=== PATIENT | female | born 1970 | race Two or more races ===

== ENCOUNTER 2019-09-23 21:26 | Emergency (ER) | payer OTHER, MEDICAID ==
--- NOTE | 2019-09-23 22:04 | EDM.PDOC ---
ED HPI GENERAL MEDICAL PROBLEM - General Stated Complaint: HEART Time Seen by Provider: 09/23/19 21:47 Source of Information: Reports: Patient History Limitations: Reports: No Limitations - History of Present Illness INITIAL COMMENTS - FREE TEXT/NARRATIVE: 49-year-old female with history of recurrent dull and aching and throbbing left- sided chest pain that radiates to her left arm and seems to come and go for the past 5-6 months. She initially was seen at [facility] in [place] at that time and was told that her heart enzymes were somewhat elevated change [place] checks and she was sent home and she has had no follow-up since then. For about the next 2 months her pain seemed to not come back and was pretty much gone and then over the past 2 months she has had recurring episodes of this pain may be coming go both with activity and at rest and lasts for anywhere from 30 minutes to 2-4 hours and then seemed to resolve on their own. When she has these pains they seem to be worse when she is up and moving about and then seemed to get better at rest. She has shortness of breath associated with these pains and nausea at times. She has had no vomiting. 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 The pain is currently a 4/10 now area she feels very anxious associated with these symptoms. She has had no vomiting. The pain in her chest is not affected by palpation or breathing. She does feel some numbness and tingling in the left hand. She also feels very anxious right now. No cough. No fever. No nasal congestion. No sore throat. No trouble swallowing. There are no other associated signs or symptoms. There are no other modifying factors. Onset: Today (APM) Duration: Constant Location: Reports: Chest, Upper Extremity, Left Quality: Reports: Ache, Dull, Other (Tingling in left arm and hand.) Severity: Moderate Improves with: Reports: Rest Worsens with: Reports: Other (Activity), Movement Context: Reports: Other Associated Symptoms: Reports: Chest Pain, Headaches, Nausea/Vomiting, Shortness of Breath Treatments [employer] HELPER: Reports: Other (see below) (Nothing) chest Pain Score (Numeric/FACES): 4 - Related Data Allergies Allergy/AdvReac Type Severity Reaction Status Date / Time amlodipine Allergy Edema Verified 09/23/19 21:50 cyproheptadine Allergy Edema Verified 09/23/19 21:50 lisinopril Allergy Cough Verified 09/23/19 21:50 trazodone Allergy Diarrhea Verified 09/23/19 21:50 Home Meds: Home Meds Aspirin 81 mg PO DAILY 09/23/19 [History] ClonazePAM [KlonoPIN] 2 mg PO TID 09/23/19 [History] Cyclobenzaprine [Flexeril] 10 mg PO TID 09/23/19 [History] DULoxetine [Cymbalta] 30 mg PO DAILY 09/23/19 [History] Empagliflozin [Jardiance] 10 mg PO DAILY 09/23/19 [History] Ferrous Sulfate 325 mg PO DAILY 09/23/19 [History] Fish Oil/[place]-3 Fatty Acids [Fish Oil 1,000 MG] 1 each PO DAILY 09/23/19 [History] Ibuprofen 800 mg PO TID PRN 09/23/19 [History] Losartan [Cozaar] 100 mg PO DAILY 09/23/19 [History] Mirtazapine [Remeron] 30 mg PO BEDTIME 09/23/19 [History] Omeprazole 20 mg PO DAILY 09/23/19 [History] Ondansetron [Zofran ODT] 4 mg PO Q6H PRN 09/23/19 [History] Pravastatin [Pravachol] 20 mg PO DAILY 09/23/19 [History] glipiZIDE [Glucotrol XL] 5 mg PO QPM 09/23/19 [History] hydroCHLOROthiazide [Hydrochlorothiazide] 25 mg PO DAILY 09/23/19 [History] metFORMIN [Glucophage] 1,000 mg PO BIDMEALS 09/23/19 [History] Past Medical History Cardiovascular History: Reports: High Cholesterol, Hypertension Psychiatric History: Reports: Anxiety, Depression, OCD, Other (See Below) (agoraphobia) Endocrine/Metabolic History: Reports: Diabetes, Type II, Obesity/BMI 30+ - Past Surgical History GI Surgical History: Reports: Cholecystectomy Female Surgical History: Reports: Section Social & Family History - Tobacco Use Smoking Status *Q: Former Smoker (Quit smoking about 3 years ago.) - Alcohol Use Alcohol Use History: No - Living Situation & Occupation Occupation: Disabled Social History Comment: From [place]. 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 ED ROS GENERAL - Review of Systems Review Of Systems: See Below Constitutional: Reports: No Symptoms HEENT: Reports: No Symptoms Respiratory: Reports: Shortness of Breath Cardiovascular: Reports: Chest Pain, Lightheadedness Endocrine: Reports: No Symptoms GI/Abdominal: Reports: Nausea. Denies: Vomiting : Reports: No Symptoms Musculoskeletal: Reports: Arm Pain (Arm pain) Neurological: Reports: Dizziness, Headache Psychiatric: Reports: Anxiety Hematologic/Lymphatic: Reports: No Symptoms Immunologic: Reports: No Symptoms ED EXAM, GENERAL - Physical Exam Exam: See Below Exam Limited By: No Limitations General Appearance: Alert, Moderate Distress, Obese Eye Exam: Bilateral Eye: EOMI, Normal Inspection, PERRL Ears: Normal External Exam, Hearing Grossly Normal Ear Exam: Bilateral Ear: Auricle Normal Nose: Normal Inspection, Normal Mucosa, No Blood Throat/Mouth: Normal Inspection, Normal Oropharynx, Normal Voice, No Airway Compromise Head: Atraumatic, Normocephalic Neck: Normal Inspection, Supple, Non-Tender, Full Range of Motion Respiratory/Chest: No Respiratory Distress, Lungs Clear, Normal Breath Sounds, No Accessory Muscle Use, Chest Non-Tender Cardiovascular: Normal Peripheral Pulses, Regular Rate, Rhythm, No JVD, No Murmur Peripheral Pulses: 2+: Radial (L), Radial (R), Dorsalis Pedis (L), Dorsalis Pedis (R) GI/Abdominal: Normal Bowel Sounds, Soft, Non-Tender, No Mass Back Exam: Normal Inspection, Full Range of Motion Extremities: Normal Inspection, Non-Tender, No Pedal Edema, Normal Capillary Refill Neurological: Alert, Oriented, CN II-XII Intact, Normal Cognition, No Motor/Sensory Deficits Psychiatric: Anxious, Tearful Skin Exam: Warm, Dry, Intact, Normal Color, No Rash EKG INTERPRETATION EKG Date: 09/23/19 Time: 21:43 Rhythm: Other (Sinus tachycardia) Rate (Beats/Min): 110 [place]: Normal P-Wave: Present QRS: Normal ST-T: Other (Flattened T waves in inferior leads.) QT: Prolonged (QTc) Comparison: NA - No Prior EKG Course - Vital Signs Last Recorded V/S: Last Vital Signs Temp 36.4 C 09/23/19 21:26 Pulse 122 H 09/23/19 22:16 Resp 22 H 09/23/19 21:26 BP 103/52 L 09/23/19 22:16 Pulse Ox 95 09/23/19 21:26 - Orders/Labs/Meds Orders: Active Orders 24 hr Category Date Time Status Blood Glucose Check, Bedside [RC] ONETIME Care 09/23/19 22:07 Active EKG Documentation Completion [RC] ASDIRECTED Care 09/23/19 22:08 Active Chest 1V Frontal [CR] Stat Exams 09/23/19 22:07 Taken Nitroglycerin [Nitrostat] Med 09/23/19 22:09 Active 0.4 mg SL Q5M PRN Sodium Chloride 0.9% [Normal Saline] 1,000 ml Med 09/23/19 22:15 Active IV ASDIRECTED Sodium Chloride 0.9% [Saline Flush] Med 09/23/19 22:07 Active 10 ml FLUSH ASDIRECTED PRN Peripheral IV Insertion Adult [OM.PC] Routine Oth 09/23/19 22:07 Ordered EKG 12 Lead [EK] Routine Ther 09/23/19 22:07 Ordered Medication Orders Sodium Chloride (Normal Saline) 1,000 mls @ 100 mls/hr IV ASDIRECTED TON Last Admin: 09/23/19 22:10 Dose: 100 mls/hr Documented by: TYRONE Nitroglycerin (Nitrostat) 0.4 mg SL Q5M PRN PRN Reason: Chest Pain Last Admin: 09/23/19 22:11 Dose: 0.4 mg Documented by: TYRONE Sodium Chloride (Saline Flush) 10 ml FLUSH ASDIRECTED PRN PRN Reason: Keep Vein Open Last Admin: 09/23/19 22:49 Dose: 10 ml Documented by: TYRONE Labs: Laboratory Tests 09/23/19 09/23/19 09/23/19 Range/Units 21:34 22:20 22:20 WBC 11.6 (4.5-12.0) X10-3/uL RBC 5.43 H (3.23-5.20) x10(6)uL Hgb 14.6 (11.5-15.5) g/dL Hct 45.9 (30.0-51.3) % MCV 84.6 (80-96) fL MCH 26.9 L (27.7-33.6) pg MCHC 31.8 L (32.2-35.4) g/dL RDW 13.8 (11.5-15.5) % Plt Count 297 (125-369) X10(3)uL MPV 7.8 (7.4-10.4) fL Neut % (Auto) 71.2 (46-82) % Lymph % (Auto) 23.1 (13-37) % [place] % (Auto) 4.4 (4-12) % Eos % (Auto) 1 (1.0-5.0) % Baso % (Auto) 0 (0-2) % Neut # (Auto) 8.3 (1.6-8.3) # Lymph # (Auto) 2.7 (0.6-5.0) # [place] # (Auto) 0.5 (0.0-1.3) # Eos # (Auto) 0.1 (0.0-0.8) # Baso # (Auto) 0.0 (0.0-0.2) # PT 10.8 (9.0-11.1) sec INR 1.00 (1.00-1.24) APTT 25.5 (24.4-33.2) SECONDS D-Dimer, Quantitative 0.36 (0.0-0.59) mg/LFEU Sodium (135-145) mmol/L Potassium (3.5-5.3) mmol/L Chloride (100-110) mmol/L Carbon Dioxide (21-32) mmol/L BUN (7-18) mg/dL Creatinine (0.55-1.02) mg/dL Est Cr Clr Drug Dosing Estimated GFR (MDRD) (>60) BUN/Creatinine Ratio (9-20) Glucose (80-116) mg/dL POC Glucose 208 H (80-116) mg/dL Calcium (8.6-10.2) mg/dL Magnesium (1.8-2.5) mg/dL Total Bilirubin (0.1-1.3) mg/dL AST (5-25) IU/L ALT (12-36) U/L Alkaline Phosphatase (56-112) IU/L Troponin I (4.0-60.3) pg/mL Total Protein (6.0-8.0) g/dL Albumin (3.5-5.2) g/dL Globulin g/dL Albumin/Globulin Ratio 09/23/19 09/23/19 Range/Units 22:20 22:20 WBC (4.5-12.0) X10-3/uL RBC (3.23-5.20) x10(6)uL Hgb (11.5-15.5) g/dL Hct (30.0-51.3) % MCV (80-96) fL MCH (27.7-33.6) pg MCHC (32.2-35.4) g/dL RDW (11.5-15.5) % Plt Count (125-369) X10(3)uL MPV (7.4-10.4) fL Neut % (Auto) (46-82) % Lymph % (Auto) (13-37) % [place] % (Auto) (4-12) % Eos % (Auto) (1.0-5.0) % Baso % (Auto) (0-2) % Neut # (Auto) (1.6-8.3) # Lymph # (Auto) (0.6-5.0) # [place] # (Auto) (0.0-1.3) # Eos # (Auto) (0.0-0.8) # Baso # (Auto) (0.0-0.2) # PT (9.0-11.1) sec INR (1.00-1.24) APTT (24.4-33.2) SECONDS D-Dimer, Quantitative (0.0-0.59) mg/LFEU Sodium 132 L (135-145) mmol/L Potassium 3.3 L (3.5-5.3) mmol/L Chloride 96 L (100-110) mmol/L Carbon Dioxide 23 (21-32) mmol/L BUN 13 (7-18) mg/dL Creatinine 0.8 (0.55-1.02) mg/dL Est Cr Clr Drug Dosing TNP Estimated GFR (MDRD) > 60 (>60) BUN/Creatinine Ratio 16.3 (9-20) Glucose 205 H (80-116) mg/dL POC Glucose (80-116) mg/dL Calcium 9.6 (8.6-10.2) mg/dL Magnesium 1.8 (1.8-2.5) mg/dL Total Bilirubin 0.6 (0.1-1.3) mg/dL AST 72 H (5-25) IU/L ALT 112 H (12-36) U/L Alkaline Phosphatase 103 (56-112) IU/L Troponin I 5.6 (4.0-60.3) pg/mL Total Protein 8.2 H (6.0-8.0) g/dL Albumin 3.8 (3.5-5.2) g/dL Globulin 4.4 g/dL Albumin/Globulin Ratio 0.9 Meds: Medications Generic Name Dose Route Start Last Admin Trade Name Jose PRN Reason Stop Dose Admin Sodium Chloride 1,000 mls @ 100 mls/hr 09/23/19 22:15 09/23/19 22:10 Normal Saline IV 100 mls/hr ASDIRECTED TON Administration Nitroglycerin 0.4 mg 09/23/19 22:09 09/23/19 22:11 Nitrostat SL 0.4 mg Q5M PRN Administration Chest Pain Sodium Chloride 10 ml 09/23/19 22:07 09/23/19 22:49 Saline Flush FLUSH 10 ml ASDIRECTED PRN Administration Keep Vein Open Discontinued Medications Generic Name Dose Route Start Last Admin Trade Name Jose PRN Reason Stop Dose Admin Aspirin 243 mg 09/23/19 22:09 09/23/19 22:10 Aspirin PO 09/23/19 22:10 243 mg ONETIME ONE Administration Lorazepam 1 mg 09/23/19 22:09 09/23/19 22:30 Ativan IVPUSH 09/23/19 22:10 1 mg ONETIME ONE Administration Ondansetron HCl 4 mg 09/23/19 22:32 09/23/19 22:41 Zofran IVPUSH 09/23/19 22:33 4 mg ONETIME ONE Administration Potassium Chloride 40 meq 09/23/19 23:23 09/23/19 23:49 Potassium Chloride Solution PO 09/23/19 23:24 40 meq ONETIME ONE Administration - Radiology Interpretation Free Text/Narrative:: Portable chest x-ray shows no acute disease. - Re-Assessments/Exams Free Text/Narrative Re-Assessment/Exam: 09/23/19 23:30: Patient had one sublingual nitroglycerin and she was chest pain- free following this. The Ativan has calmed her down significantly and she feels much improved. Her chest x-ray is normal and her initial troponin was negative. With her recurrent episodes of chest pain and tightness and left arm pain and numbness, I am concerned that this is unstable angina. I have recommended to the patient that she consented to one of 2 evaluation options. Option 1 would be to wait for another 2 hours and to repeat her troponin and if the troponin were negative then it would be less likely that this is a heart attack and she could go home at that time with some more reassurances. Option 2 would be for me to send her to [facility] so that she could be admitted and have serial heart enzyme tests with cardiology specially services to evaluate her further. The patient does not want to do either of these options. She is from the [facility] and has a physician in that area and really wants to go home at this point. I have expressed to her that this is not without risk and even though her initial troponin was negative, her pain only began time ago and there could still be damage that would show up on a later check of her blood. I once again stressed that further observation with additional heart enzyme tests would be necessary to more thoroughly rule out (or rule in) heart related problem. She states that she understands this risk but it still wanted to go home despite the risk. I have stressed to the patient that she needs to follow-up with her primary provider and if she were to have recurrent chest pain she should represent to an emergency department for further evaluation. Her potassium was slightly low and I am giving her 40 mEq of potassium by mouth prior to her discharge. Departure - Departure Time of Disposition: 23:55 Disposition: Home, Self-Care 01 Condition: Good (Stable) Clinical Impression: Anxiety, Diabetes mellitus type 2 in obese Chest pain Qualifiers: Chest pain type: unspecified Qualified Code(s): R07.9 - Chest pain, unspecified Referrals: PCP,None [Primary Care Provider] - Additional Instructions: Your EKG did show slight abnormalities but did not show a heart attack pattern. Your blood tests were normal except for a blood glucose of 208 and a slightly low potassium of 3.3. As we discussed, a normal cardiac enzyme tests at this point does not completely rule out a heart related problem. I did recommend that you either stay here for a longer period of time and have a repeat heart enzyme tests or be transferred to a facility for admission with cardiology specially services and potentially further workup and your heart but she refused this and wanted to go home. It is imperative that you follow-up with your primary doctor this next week. In addition, if you develop chest pain, shortness of breath worsening weakness or any other concerning sign or symptom, you should go to an emergency department for reevaluation at that time. Sepsis Event Note (ED) - Focused Exam Vital Signs: Vital Signs Temp Pulse Resp BP BP Pulse Ox 09/23/19 22:16 122 H 103/52 L 09/23/19 22:11 133/90 09/23/19 21:26 36.4 C 111 H 22 H 147/93 H 95 - My Orders Last 24 Hours: My Active Orders 09/23/19 22:07 Blood Glucose Check, Bedside [RC] ONETIME Chest 1V Frontal [CR] Stat Sodium Chloride 0.9% [Saline Flush] 10 ml FLUSH ASDIRECTED PRN Peripheral IV Insertion Adult [OM.PC] Routine EKG 12 Lead [EK] Routine 09/23/19 22:08 EKG Documentation Completion [RC] ASDIRECTED 09/23/19 22:09 Nitroglycerin [Nitrostat] 0.4 mg SL Q5M PRN 09/23/19 22:15 Sodium Chloride 0.9% [Normal Saline] 1,000 ml IV ASDIRECTED - Assessment/Plan Last 24 Hours: My Active Orders 09/23/19 22:07 Blood Glucose Check, Bedside [RC] ONETIME Chest 1V Frontal [CR] Stat Sodium Chloride 0.9% [Saline Flush] 10 ml FLUSH ASDIRECTED PRN Peripheral IV Insertion Adult [OM.PC] Routine EKG 12 Lead [EK] Routine 09/23/19 22:08 EKG Documentation Completion [RC] ASDIRECTED 09/23/19 22:09 Nitroglycerin [Nitrostat] 0.4 mg SL Q5M PRN 09/23/19 22:15 Sodium Chloride 0.9% [Normal Saline] 1,000 ml IV ASDIRECTED
[2019-09-23] MEDS ORDERED: Sodium Chloride 0.9% 10 ML Syringe FLUSH PRN (22:07)
[2019-09-23] MEDS ORDERED: Aspirin 81 MG Tab.Chew PO ONE (22:09)
[2019-09-23] MEDS ORDERED: LORazepam 2 MG/ML SDV IVPUSH ONE (22:09)
[2019-09-23] MEDS ORDERED: Nitroglycerin 0.4 MG Tab.SL SL PRN (22:09)
[2019-09-23] MEDS ORDERED: Sodium Chloride 0.9% 1,000 ML IV SCH (22:15)
[2019-09-23] MEDS ORDERED: Ondansetron 4 MG/2 ML SDV IVPUSH ONE (22:32)
[2019-09-23] MEDS ORDERED: Potassium Chloride 10% 20 MEQ/15 ML Soln 15 ML UD Cup PO ONE (23:23)
--- NOTE | 2019-09-26 11:16 | CR ---
INDICATION: Chest pain. CHEST ONE VIEW: Portable AP upright view of the chest was obtained 09/23/19 - no comparison. Heart is normal in size and shape. Mediastinum was fairly unremarkable with slightly prominent aortic arch. Evidence of exogenous obesity is noted. There are some linear densities in the left mid lung and left lower lung field which may be related to fibrosis or possibly linear atelectasis. It is difficult to exclude minimal patchy bronchopneumonia in those areas. However, no gross consolidating pneumonia, or definite effusion was identified. MTDD
== END 2019-09-24 00:15 | disposition home or self-care (01) ==
LOC: FB.ED 21:26
DX: R07.9 Chest pain, unspecified (principal); F41.9 Anxiety disorder, unspecified; E11.9 Type 2 diabetes mellitus without complications; E66.9 Obesity, unspecified; Z68.37 Body mass index [BMI] 37.0-37.9, adult; R00.0 Tachycardia, unspecified; E78.00 Pure hypercholesterolemia, unspecified; I10 Essential (primary) hypertension; F32.9 Major depressive disorder, single episode, unspecified; R42 Dizziness and giddiness; Z87.891 Personal history of nicotine dependence; Z98.890 Other specified postprocedural states; Z88.8 Allergy status to other drugs, medicaments and biological substances; Z79.82 Long term (current) use of aspirin; Z79.899 Other long term (current) drug therapy; Z79.84 Long term (current) use of oral hypoglycemic drugs
CPT/HCPCS: 36415; 71045; 80053; 82962; 83735; 84484; 85025; 85379; 85610; 85730; 93005; 96361; 96374; 99285; A9270; J2060; J2405; J7030